=== PATIENT | male | born 1955 | race Caucasian/White ===

== ENCOUNTER 2019-05-11 07:45 | Emergency (ER) | payer SELFPAY ==
[~2019-05-11] VITALS: Ht 172.7 cm; Wt 68.0 kg
[2019-05-11] MEDS ORDERED: KETOROLAC 30MG/ML VIAL IM ONE (08:15)
[2019-05-11 09:15] VITALS: BP 128/82
== END 2019-05-11 09:20 | disposition home or self-care (01) ==
LOC: ER 07:45
DX: S20.212A Contusion of left front wall of thorax, initial encounter (principal); S20.211A Contusion of right front wall of thorax, initial encounter; W01.0XXA Fall on same level from slipping, tripping and stumbling without subsequent striking against object, initial encounter; Y93.9 Activity, unspecified; Y92.9 Unspecified place or not applicable; Z88.6 Allergy status to analgesic agent
CPT/HCPCS: 71111; 96372; 99283; J1885